=== PATIENT | female | born 2000 | race Caucasian/White ===

== ENCOUNTER 2022-03-27 12:30 | Emergency (ER) | payer BC, SELFPAY ==
--- NOTE | ~2022-03-27 | CT_ITS ---
EXAMINATION: CT abdomen pelvis w con DATE: 03/27/2022 14:05 INDICATION: Right lower quadrant abdominal pain TECHNIQUE: Computed tomography (CT) of the abdomen and pelvis was performed with 100 mL Omnipaque-350 intravenous contrast. Automated exposure control and iterative reconstruction technique were employe d. The dose-length product was 653.39 mGy-cm. COMPARISON: None FINDINGS: Mild discoid atelectasis at the left lower lobe. Heart size is normal. No pericardial or pleural effu jordan. Gallbladder, spleen, pancreas, bilateral adrenal glands and kidneys are normal. There is mild p eriportal edema at the otherwise normal liver. Common bile duct is normal in caliber. Bowels includin g the appendix are normal. Bladder, anteverted uterus and bilateral adnexa are unremarkable. No free intraperitoneal gas or fluid. No pathologically enlarged abdominal or pelvic lymphadenopathy. Bones a re unremarkable. IMPRESSION: 1. Mild periportal edema at the liver can be seen with aggressive fluid resuscitation, acute hepatiti s, cholangitis or congestive heart failure. 2. No other acute intra-abdominal/pelvic process. Normal appendix. Reviewed, dictated and finalized at location A. IMPRESSION: 1. Mild periportal edema at the liver can be seen with aggressive fluid resusci tation, acute hepatitis, cholangitis or congestive heart failure. 2. No other acute intra-abdominal/pelvic process. Normal appendix.
--- NOTE | ~2022-03-27 | US_ITS ---
EXAMINATION: US pelvic complete w TV DATE: 03/27/2022 15:13 INDICATION: Right lower quadrant abdominal pain. TECHNIQUE: Multiple transabdominal and transvaginal sonographic images of the pelvis were obtained. COMPARISON: CT abdomen and pelvis 03/27/2022 FINDINGS: TRANSABDOMINAL ULTRASOUND: The uterus measures 6.2 x 2.8 x 5.0 cm. There is no free fluid in the pelvis. TRANSVAGINAL ULTRASOUND: The endometrial complex measures 4 mm in thickness. The ovaries are not visualized. IMPRESSION: 1. Normal uterus. Ovaries not visualized. Reviewed, dictated and finalized at location A.
[2022-03-27 12:32] VITALS: BP 136/75; PULSE 96; RESP 16; TEMP 36.3; O2SAT 98
--- NOTE | 2022-03-27 12:43 | ED.ABDPAIN ---
HPI - Abdominal Pain General Chief Complaint: Abdominal Pain Stated Complaint: abd pain, nausea Time Seen by Provider: 03/27/22 12:42 Source: patient Mode of arrival: ambulatory Limitations: no limitations History of Present Illness HPI narrative: 22 years old white female presents with pain right lower quadrant been going for a while got worse last night. She reports pain gets worse with activity, it better laying still. She denies any fever, chills, nausea, vomiting, vaginal bleeding or discharge or urinary symptoms. Patient reported history of ovarian cyst bilaterally 6 weeks ago. Patient is sexually active, not on any medication patient reported that pain comes anytime when she tried to workout Related Data Allergies Allergy/AdvReac Type Severity Reaction Status Date / Time No Known Allergies Allergy Verified 03/27/22 12:45 Review of Systems Review of Systems: All systems reviewed & are unremarkable except as noted in HPI and below Exam Narrative: General appearance: Well-developed, well-nourished Skin: Normal color Head: Normocephalic, nontraumatic Eyes: Clear conjunctiva ENT: Oropharynx normal, ears normal, nose normal Neck: Supple, nontender Chest and respiratory: Airway patent, no respiratory distress, no accessory muscle use Heart: Regular rate/rhythm Abdomen: Soft, diffuse tenderness lower abdomen bilaterally mainly on the right side, no organomegaly, quiet bowel sounds Vascular: Normal peripheral pulses, normal capillary refill. Musculoskeletal: Normal range of motion, nontender back Neurologic: Alert and oriented ?3, [employer] is normal as tested, no gross motor deficit Course Course Emergency Course: Work-up today did not show any significant findings to explain patient lower abdominal pain. Patient reported playing football yesterday with a lot of falling and pushing and bending. Which high likely could be the underlying cause of her lower abdominal pain. Patient reported history of bilateral ovarian cyst few weeks ago, current work-up did not show any significant abnormality. Although the radiology was not able to see the ovaries. The other abnormality including edema in the portal vein which could indicate hepatitis or cholangitis is extremely less likely. I plan to let patient follow-up with [employer] [employer] for further evaluation. Vital Signs Vital signs: Vital Signs Temperature 36.3 C L 03/27/22 12:32 Pulse Rate 96 03/27/22 12:32 Respiratory Rate 16 03/27/22 12:32 Blood Pressure 136/75 03/27/22 12:32 Pulse Oximetry 98 03/27/22 12:32 Oxygen Delivery Room Air 03/27/22 12:32 Temperature 36.3 C L 03/27/22 12:32 Pulse Rate 96 03/27/22 12:32 Respiratory Rate 16 03/27/22 12:32 Blood Pressure 136/75 03/27/22 12:32 Pulse Oximetry 98 03/27/22 12:32 Oxygen Delivery Room Air 03/27/22 12:32 MDM - Abdominal Pain Differential Diagnosis Differential diagnosis: Likely abdominal pain, acute appendicitis, constipation, diverticulitis and pancreatitis Lab Data Result diagrams: 03/27/22 13:18 03/27/22 13:18 Labs: Lab Results 03/27/22 03/27/22 03/27/22 Range/Units 13:18 13:18 13:18 WBC 6.5 (4.5-10.0) K/mm3 RBC 4.48 (4.2-5.4) M/mm3 Hgb 14.0 (12.0-15.0) g/dL Hct 41.1 (37.0-47.0) % MCV 91.7 (80-100) fl MCH 31.3 (26-34) pg MCHC 34.1 (32-36) g/dl RDW 12.9 (11.5-14.5) % Plt Count 211 (150-375) k/mm3 MPV 9.3 (7.4-10.4) fl Immature Gran % (Auto) 0.2 (0-0.5) % Neut % (Auto) 62.5 (45.5-73.1) % Lymph % (Auto) 25.4 (18.3-44.2) % Maury % (Auto) 9.3 H (2.6-8.5) % Eos % (Auto) 2.0 (0-4.4) % Baso
[2022-03-27] MEDS: SODIUM CHLORIDE 0.9% IV 1,000 ML 999 ML IV CONT (13:19)
[2022-03-27 13:35] LABS: Basophils Percent Auto 0.6 % (0.2-1.2); Eosinophils Absolute Auto 0.1 K/mm3 (0-0.3); Hematocrit 41.1 % (37.0-47.0); Immature Granulocyte Absolute 0.01 K/mm3 (0.00-0.031); Immature Granulocyte Percent A 0.2 % (0-0.5); Lymphocytes Absolute Auto 1.66 K/mm3 (0.9-3.2); Lymphocytes Percent Auto 25.4 % (18.3-44.2); Mean Corpuscular HGB Conc 34.1 g/dl (32-36); Mean Corpuscular Hemoglobin 31.3 pg (26-34); Mean Corpuscular Volume 91.7 fl (80-100); Mean Platelet Volume 9.3 fl (7.4-10.4); Monocytes Absolute Auto 0.6 K/mm3 (0.1-0.6); Monocytes Percent Auto 9.3 % (2.6-8.5); Neutrophils Absolute Auto 4.1 K/mm3 (1.3-6.7); Neutrophils Percent Auto 62.5 % (45.5-73.1); Platelet Count Result 211 k/mm3 (150-375); Red Blood Count 4.48 M/mm3 (4.2-5.4); Red Cell Distribution Width 12.9 % (11.5-14.5); White Blood Count 6.5 K/mm3 (4.5-10.0)
[2022-03-27 13:36] LABS: Appearance Urine Clear (Clear); Bilirubin Urine 1+ (Negative); Blood Urine Negative (Negative); Color Urine Yellow (Yellow); Glucose Urine UA Negative (Negative); Ketones Urine 1+ mg/dL (Negative); Leukocyte Esterase Ur Negative LEU/UL (Negative); Nitrate Urine Negative (Negative); Protein Urine 1+ mg/dL (Negative); Specific Grav Ur >= 1.030 (1.001-1.035); Urobilinogen Urine 0.2 mg/dL (<2.0)
[2022-03-27 13:38] LABS: Alanine Aminotransferase 19 U/L (6-35); Albumin Level 4.5 g/dL (3.5-5.1); Alkaline Phosphatase 53 U/L (38-126); Anion Gap 13 mmol/L (8-16); Aspartate Amino Transferase 29 U/L (14-36); Bilirubin,Total 0.9 mg/dL (0.2-1.3); Blood Urea Nitrogen 12 mg/dL (7-17); Calcium 8.9 mg/dL (8.4-10.2); Carbon Dioxide 23 mmol/L (22-30); Chloride 104 mmol/L (98-107); Estimated CRCL calculation 95 ml/min; Estimated Glomerular Filt Rate > 60; Glucose 121 mg/dL (65-110); Lipase 68 U/L (23-300); Potassium 3.4 mmol/L (3.4-5.0); Sodium 140 mmol/L (137-145)
[2022-03-27 13:58] LABS: Mucus Urine Moderate /lpf; Squamous Epithelial Cell Urine Occasional /hpf (Few); WBC Urine 0-3 /hpf
[2022-03-27 14:01] LABS: Add Urine Microscopic? YES
[2022-03-27] MEDS: KETOROLAC 30 MG/ML VIAL (*BKC) IV PUSH (15:08)
[2022-03-27 15:57] VITALS: BP 99/66; PULSE 60; RESP 18; O2SAT 99
== END 2022-03-27 15:59 | disposition home or self-care (01) ==
PROVIDERS: Emergency Provider Emergency Medicine
DX: R10.31 Right lower quadrant pain (principal); R10.32 Left lower quadrant pain
CPT/HCPCS: 36415; 74177; 76830; 76856; 80053; 81001; 81025; 83690; 85025; 96361; 96374; 99284; J1885; J7030; Q9967